=== PATIENT | male | born 1985 | race African-American/Black ===

== ENCOUNTER 2018-12-05 15:56 | Emergency (ER) | payer SELFPAY ==
[~2018-12-05] VITALS: Ht 177.8 cm; Wt 83.0 kg
[2018-12-05 17:12] LABS: BASOPHILS % 0.8 % (0.0-2.0); EOSINOPHILS % 1.5 % (0.0-5.0); HEMOGLOBIN. 14.4 g/dL (14.0-18.0); LYMPHOCYTES % 20.7 % (20.0-50.0); MEAN CORPUSCULAR HEMOGLOBIN 31.3 pg (28.0-32.0); MEAN CORPUSCULAR VOLUME 91.5 fL (80.0-94.0); MEAN PLATELET VOLUME 9.9 fl (7.4-10.4); MONOCYTES % 7.1 % (2.0-8.0); NEUTROPHILS % 69.9 % (40.0-76.0); PLATELET 198 x1000/uL (130-400); RED BLOOD CELL COUNT 4.59 mill/uL (4.7-6.1); RED CELL DISTRIBUTION WIDTH 14.7 % (11.6-14.6)
[2018-12-05 18:12] VITALS: BP 121/62
== END 2018-12-05 18:58 | disposition home or self-care (01) ==
LOC: ER 17:00
DX: R42 Dizziness and giddiness (principal); R51 Headache; D64.9 Anemia, unspecified
CPT/HCPCS: 36415; 99283